=== PATIENT | male | born 1950 | race Caucasian/White ===

== ENCOUNTER 2019-06-10 15:41 | Inpatient (IN) ==
[2019-06-10] MEDS ORDERED: 0.9 % Sodium Chloride 500 ML IVC STA (16:03)
[2019-06-10 16:04] LABS: Basophils % 0.4 %; Eosinophils # 0.1 K/mcL (0.0-0.6); Eosinophils % 1.1 %; Hematocrit 44.2 % (37.5-50.1); Hemoglobin 15.3 g/dL (12.9-16.9); Immature Granulocytes % 0.3 % (0-4); Lymphocytes # 1.7 K/mcL (0.6-4.6); Lymphocytes % 18.3 %; Mean Corpuscular HGB Conc 34.6 g/dL (31.6-35.5); Mean Corpuscular Hemoglobin 28.9 pg (28.0-33.3); Mean Corpuscular Volume 83.6 fL (83.0-100.0); Mean Platelet Volume 9.7 fL (9.4-12.4); Monocytes # 0.7 K/mcL (0.0-1.3); Monocytes % 7.5 %; Neutrophils # 6.8 K/mcL (1.6-8.9); Platelet Count 342 K/mcL (140-400); Red Blood Count 5.29 M/mcL (4.19-5.50); Red Cell Distribution Width 13.8 % (11.5-14.5); Segmented Neutrophils % 72.4 %; White Blood Count 9.3 K/mcL (4.3-11.1)
[2019-06-10 16:25] LABS: BUN/Creatinine Ratio 21 (6-26); Blood Urea Nitrogen 18 mg/dL (8-23); Calcium 9.4 mg/dL (8.6-10.3); Carbon Dioxide 28 mEq/L (23-29); Chloride 100 mEq/L (98-107); Glucose 165 mg/dL (70-105); Osmolality,Calculated 296 (280-300); Potassium 3.1 mEq/L (3.5-5.1); Sodium 140 mEq/L (136-145); Troponin I < 0.03 ng/mL (< 0.04); eGFR For African Americans > 60 (> 60); eGFR For Non-African Americans > 60 (> 60)
[2019-06-10] MEDS: DilTIAZem 50 MG in 0.9 % Sodium Chloride 40 ML IVC SCH ×2 (17:14→21:12)
[2019-06-10] MEDS ORDERED: Naloxone 0.4 MG/ML INJ IVP PRN (17:45)
[2019-06-10] MEDS ORDERED: Ondansetron ODT 4 MG TAB.RAPDIS SL PRN (17:45)
[2019-06-10 18:09] LABS: Magnesium 1.9 mg/dL (1.6-2.6)
[2019-06-10] MEDS ORDERED: Dextrose Gel 15 GM/37.5 ML TUBE PO PRN ×2 (18:16)
[2019-06-10] MEDS ORDERED: D5% in Water 1,000 ML IVC PRN (18:16)
[2019-06-10] MEDS ORDERED: *HR* Dextrose 50 % in Water (Syg) 50 ML SYRINGE IVP PRN (18:16)
[2019-06-11] MEDS: DilTIAZem 50 MG in 0.9 % Sodium Chloride 40 ML IVC SCH ×4 (02:20→20:43)
[2019-06-11 05:21] LABS: Hematocrit 41.3 % (37.5-50.1); Mean Corpuscular HGB Conc 33.9 g/dL (31.6-35.5); Mean Corpuscular Hemoglobin 29.1 pg (28.0-33.3); Mean Corpuscular Volume 85.9 fL (83.0-100.0); Mean Platelet Volume 10.2 fL (9.4-12.4); Platelet Count 302 K/mcL (140-400); Red Blood Count 4.81 M/mcL (4.19-5.50); Red Cell Distribution Width 13.8 % (11.5-14.5); White Blood Count 10.9 K/mcL (4.3-11.1)
[2019-06-11 05:47] LABS: BUN/Creatinine Ratio 19 (6-26); Blood Urea Nitrogen 14 mg/dL (8-23); Calcium 8.5 mg/dL (8.6-10.3); Carbon Dioxide 24 mEq/L (23-29); Chloride 103 mEq/L (98-107); Glucose 145 mg/dL (70-105); Osmolality,Calculated 289 (280-300); Potassium 3.3 mEq/L (3.5-5.1); Sodium 138 mEq/L (136-145); eGFR For African Americans > 60 (> 60); eGFR For Non-African Americans > 60 (> 60)
[2019-06-11] MEDS: Lisinopril 20 MG TABLET PO SCH (08:34)
[2019-06-11] MEDS: Finasteride 5 MG TABLET PO SCH (08:34)
[2019-06-11] MEDS: Aspirin Enteric Coated 81 MG Tablet PO SCH (08:35)
[2019-06-11] MEDS: Magnesium Oxide 400 MG TABLET PO SCH (08:35)
[2019-06-11] MEDS: Multivit/Ca/Min/Fe/FA 1 TAB TABLET PO SCH (08:36)
[2019-06-11] MEDS: Insulin LISPRO 300 UNITS/3 ML VIAL SQ SCH ×3 (08:50→16:52)
[2019-06-11] MEDS ORDERED: amLODIPine 5 MG TABLET PO SCH (09:00)
[2019-06-11] MEDS ORDERED: Metoprolol XL (24 HR) Succ 50 MG TAB.ER.24H PO SCH (09:00)
[2019-06-11] MEDS ORDERED: Metoprolol XL (24 HR) Succ 25 MG TAB.ER.24H PO ONE (11:47)
[2019-06-11] MEDS ORDERED: Perflutren Lipid Microsphere 1.3 ML in 0.9 % Sodium Chloride 8.7 ML IVP ONE (15:19)
[2019-06-11] MEDS: *HR* Rivaroxaban 10 MG TABLET PO SCH (16:51)
[2019-06-11] MEDS: Insulin DETEMIR 100 UNIT/ML X5UNITS SQ SCH (20:38)
[2019-06-12] MEDS: DilTIAZem 50 MG in 0.9 % Sodium Chloride 40 ML IVC SCH ×3 (03:24→18:45)
[2019-06-12 04:59] LABS: Hematocrit 38.6 % (37.5-50.1); Hemoglobin 13.3 g/dL (12.9-16.9); Mean Corpuscular HGB Conc 34.5 g/dL (31.6-35.5); Mean Corpuscular Hemoglobin 28.9 pg (28.0-33.3); Mean Corpuscular Volume 83.7 fL (83.0-100.0); Mean Platelet Volume 9.9 fL (9.4-12.4); Platelet Count 293 K/mcL (140-400); Red Blood Count 4.61 M/mcL (4.19-5.50); Red Cell Distribution Width 14.1 % (11.5-14.5); White Blood Count 10.5 K/mcL (4.3-11.1)
[2019-06-12 05:18] LABS: BUN/Creatinine Ratio 24 (6-26); Blood Urea Nitrogen 20 mg/dL (8-23); Calcium 8.6 mg/dL (8.6-10.3); Carbon Dioxide 25 mEq/L (23-29); Chloride 104 mEq/L (98-107); Glucose 146 mg/dL (70-105); Osmolality,Calculated 297 (280-300); Potassium 3.6 mEq/L (3.5-5.1); Sodium 141 mEq/L (136-145); eGFR For African Americans > 60 (> 60); eGFR For Non-African Americans > 60 (> 60)
[2019-06-12] MEDS: Insulin LISPRO 300 UNITS/3 ML VIAL SQ SCH ×3 (08:17→17:08)
[2019-06-12] MEDS: Multivit/Ca/Min/Fe/FA 1 TAB TABLET PO SCH (08:32)
[2019-06-12] MEDS: Lisinopril 20 MG TABLET PO SCH (08:32)
[2019-06-12] MEDS: Finasteride 5 MG TABLET PO SCH (08:33)
[2019-06-12] MEDS: Magnesium Oxide 400 MG TABLET PO SCH (08:33)
[2019-06-12] MEDS: Insulin DETEMIR 100 UNIT/ML X5UNITS SQ SCH ×2 (08:34→21:29)
[2019-06-12] MEDS: Metoprolol XL (24 HR) Succ 50 MG TAB.ER.24H PO SCH ×2 (08:34→21:29)
[2019-06-12] MEDS: Aspirin Enteric Coated 81 MG Tablet PO SCH (08:34)
[2019-06-12] MEDS ORDERED: Metoprolol XL (24 HR) Succ 50 MG TAB.ER.24H PO SCH (09:00)
[2019-06-12] MEDS ORDERED: Metoprolol XL (24 HR) Succ 25 MG TAB.ER.24H PO ONE (09:32)
[2019-06-12] MEDS: *HR* Rivaroxaban 10 MG TABLET PO SCH (17:07)
[2019-06-13 02:02] LABS: BUN/Creatinine Ratio 25 (6-26); Blood Urea Nitrogen 20 mg/dL (8-23); Calcium 8.6 mg/dL (8.6-10.3); Carbon Dioxide 25 mEq/L (23-29); Chloride 106 mEq/L (98-107); Glucose 111 mg/dL (70-105); Magnesium 1.9 mg/dL (1.6-2.6); Osmolality,Calculated 293 (280-300); Phosphorous 3.8 mg/dL (2.7-4.5); Potassium 3.2 mEq/L (3.5-5.1); Sodium 140 mEq/L (136-145); eGFR For African Americans > 60 (> 60); eGFR For Non-African Americans > 60 (> 60)
[2019-06-13] MEDS: Metoprolol XL (24 HR) Succ 50 MG TAB.ER.24H PO SCH ×2 (08:59→20:38)
[2019-06-13] MEDS: Lisinopril 20 MG TABLET PO SCH (09:00)
[2019-06-13] MEDS: Aspirin Enteric Coated 81 MG Tablet PO SCH (09:00)
[2019-06-13] MEDS: Finasteride 5 MG TABLET PO SCH (09:00)
[2019-06-13] MEDS: Multivit/Ca/Min/Fe/FA 1 TAB TABLET PO SCH (09:00)
[2019-06-13] MEDS: Magnesium Oxide 400 MG TABLET PO SCH (09:02)
[2019-06-13] MEDS: Insulin LISPRO 300 UNITS/3 ML VIAL SQ SCH ×2 (09:03→12:41)
[2019-06-13] MEDS: Insulin DETEMIR 100 UNIT/ML X5UNITS SQ SCH ×2 (09:06→20:38)
[2019-06-13] MEDS ORDERED: DilTIAZem CD (24hr) 180 MG CAP.ER.24H PO SCH (11:01)
[2019-06-13] MEDS: DilTIAZem 50 MG in 0.9 % Sodium Chloride 40 ML IVC SCH (11:43)
[2019-06-13] MEDS: *HR* Rivaroxaban 10 MG TABLET PO SCH (17:01)
[2019-06-14 02:53] LABS: BUN/Creatinine Ratio 25 (6-26); Blood Urea Nitrogen 23 mg/dL (8-23); Calcium 8.6 mg/dL (8.6-10.3); Carbon Dioxide 27 mEq/L (23-29); Chloride 104 mEq/L (98-107); Glucose 122 mg/dL (70-105); Osmolality,Calculated 299 (280-300); Phosphorous 3.9 mg/dL (2.7-4.5); Potassium 3.4 mEq/L (3.5-5.1); Sodium 142 mEq/L (136-145); eGFR For African Americans > 60 (> 60); eGFR For Non-African Americans > 60 (> 60)
[2019-06-14] MEDS ORDERED: DilTIAZem CD (24hr) 240 MG CAP.ER.24H PO SCH (09:00)
[2019-06-14] MEDS: Insulin LISPRO 300 UNITS/3 ML VIAL SQ SCH ×3 (09:23→13:38)
[2019-06-14] MEDS: Aspirin Enteric Coated 81 MG Tablet PO SCH (09:35)
[2019-06-14] MEDS: Metoprolol XL (24 HR) Succ 50 MG TAB.ER.24H PO SCH (09:36)
[2019-06-14] MEDS: Magnesium Oxide 400 MG TABLET PO SCH (09:36)
[2019-06-14] MEDS: Lisinopril 20 MG TABLET PO SCH (09:36)
[2019-06-14] MEDS: Multivit/Ca/Min/Fe/FA 1 TAB TABLET PO SCH (09:36)
[2019-06-14] MEDS: Finasteride 5 MG TABLET PO SCH (09:36)
[2019-06-14] MEDS: Insulin DETEMIR 100 UNIT/ML X5UNITS SQ SCH (09:42)
[2019-06-14] MEDS ORDERED: *HR* Metoprolol 5 MG/5 ML VIAL IVP ONE (11:29)
[2019-06-14 12:02] VITALS: BP 125/97
== END 2019-06-14 15:54 | disposition home or self-care (01) | DRG 310 ==
LOC: SUATTDRO → EMEROOARM 15:41 → 2NENU 15:41 → SUATTDRO 18:35 → 2NENU 19:33
PROVIDERS: ADMIT Student in an Organized Health Care Education/Training Program; ATTEND Internal Medicine

== ENCOUNTER 2019-07-08 16:20 | Inpatient (IN) ==
[2019-07-08 17:31] LABS: Basophils % 0.4 %; Eosinophils # 0.2 K/mcL (0.0-0.6); Eosinophils % 1.7 %; Hematocrit 39.9 % (37.5-50.1); Hemoglobin 13.3 g/dL (12.9-16.9); Immature Granulocytes % 0.1 % (0-4); Lymphocytes # 1.6 K/mcL (0.6-4.6); Lymphocytes % 16.5 %; Mean Corpuscular HGB Conc 33.3 g/dL (31.6-35.5); Mean Corpuscular Hemoglobin 28.7 pg (28.0-33.3); Mean Corpuscular Volume 86.2 fL (83.0-100.0); Mean Platelet Volume 10.3 fL (9.4-12.4); Monocytes # 0.7 K/mcL (0.0-1.3); Monocytes % 6.8 %; Neutrophils # 7.2 K/mcL (1.6-8.9); Platelet Count 274 K/mcL (140-400); Red Blood Count 4.63 M/mcL (4.19-5.50); Red Cell Distribution Width 14.3 % (11.5-14.5); Segmented Neutrophils % 74.5 %; White Blood Count 9.6 K/mcL (4.3-11.1)
[2019-07-08 17:38] LABS: INR 1.2; Prothrombin Time 14.1 Seconds (9.4-12.1)
[2019-07-08 17:40] LABS: Activated Partial Thrombo Time 38.1 Seconds (26.0-36.0)
[2019-07-08 17:49] LABS: BUN/Creatinine Ratio 22 (6-26); Blood Urea Nitrogen 17 mg/dL (8-23); Calcium 9.4 mg/dL (8.6-10.3); Carbon Dioxide 28 mEq/L (23-29); Chloride 103 mEq/L (98-107); Glucose 203 mg/dL (70-105); Osmolality,Calculated 301 (280-300); Sodium 142 mEq/L (136-145); Troponin I < 0.03 ng/mL (< 0.04); eGFR For African Americans > 60 (> 60); eGFR For Non-African Americans > 60 (> 60)
[2019-07-08] MEDS: DilTIAZem 50 MG in 0.9 % Sodium Chloride 40 ML IVC SCH ×2 (17:57→22:32)
[2019-07-08] MEDS ORDERED: *HR* Metoprolol 5 MG/5 ML VIAL IVP ONE (23:01)
[2019-07-08] MEDS ORDERED: Naloxone 0.4 MG/ML INJ IVP PRN (23:28)
[2019-07-08] MEDS ORDERED: *HR* Dextrose 50 % in Water (Syg) 50 ML SYRINGE IVP PRN (23:33)
[2019-07-08] MEDS ORDERED: Dextrose Gel 15 GM/37.5 ML TUBE PO PRN ×2 (23:33)
[2019-07-08] MEDS ORDERED: D5% in Water 1,000 ML IVC PRN (23:33)
[2019-07-09] MEDS: *HR* Rivaroxaban 10 MG TABLET PO SCH ×2 (00:18→08:44)
[2019-07-09] MEDS: Insulin LISPRO 300 UNITS/3 ML VIAL SQ SCH ×5 (00:19→20:17)
[2019-07-09] MEDS ORDERED: *HR* Metoprolol 5 MG/5 ML VIAL IVP ONE (02:17)
[2019-07-09] MEDS ORDERED: Potassium Chloride 40 MEQ, Lidocaine 1% 2 ML in 0.9 % Sodium Chloride 500 ML IVPB ONE (03:13)
[2019-07-09] MEDS: DilTIAZem 50 MG in 0.9 % Sodium Chloride 40 ML IVC SCH ×4 (03:19→23:00)
[2019-07-09 05:06] LABS: Hemoglobin 12.8 g/dL (12.9-16.9); Mean Corpuscular HGB Conc 32.8 g/dL (31.6-35.5); Mean Corpuscular Hemoglobin 28.4 pg (28.0-33.3); Mean Corpuscular Volume 86.7 fL (83.0-100.0); Mean Platelet Volume 10.8 fL (9.4-12.4); Platelet Count 290 K/mcL (140-400); Red Cell Distribution Width 14.2 % (11.5-14.5); White Blood Count 11.5 K/mcL (4.3-11.1)
[2019-07-09 05:32] LABS: BUN/Creatinine Ratio 19 (6-26); Blood Urea Nitrogen 13 mg/dL (8-23); Calcium 8.8 mg/dL (8.6-10.3); Carbon Dioxide 29 mEq/L (23-29); Chloride 101 mEq/L (98-107); Glucose 134 mg/dL (70-105); Magnesium 1.7 mg/dL (1.6-2.6); Osmolality,Calculated 294 (280-300); Phosphorous 3.6 mg/dL (2.7-4.5); Potassium 2.9 mEq/L (3.5-5.1); Sodium 141 mEq/L (136-145); Troponin I < 0.03 ng/mL (< 0.04); eGFR For African Americans > 60 (> 60); eGFR For Non-African Americans > 60 (> 60)
[2019-07-09] MEDS: Aspirin Enteric Coated 81 MG Tablet PO SCH (08:44)
[2019-07-09] MEDS ORDERED: *HR* Rivaroxaban 10 MG TABLET PO SCH (09:00)
[2019-07-09] MEDS: DilTIAZem CD (24hr) 240 MG CAP.ER.24H PO SCH (09:51)
[2019-07-09] MEDS: Lisinopril 20 MG TABLET PO SCH (09:52)
[2019-07-09] MEDS: Metoprolol XL (24 HR) Succ 50 MG TAB.ER.24H PO SCH (09:53)
[2019-07-09] MEDS ORDERED: Metoprolol XL (24 HR) Succ 50 MG TAB.ER.24H PO SCH (21:00)
[2019-07-09] MEDS ORDERED: *HR* LORazepam 0.5 MG TABLET PO ONE (21:56)
[2019-07-10 01:08] LABS: Basophils % 0.4 %; Eosinophils # 0.2 K/mcL (0.0-0.6); Eosinophils % 2.1 %; Hematocrit 36.9 % (37.5-50.1); Hemoglobin 11.9 g/dL (12.9-16.9); Immature Granulocytes % 0.4 % (0-4); Lymphocytes # 2.2 K/mcL (0.6-4.6); Lymphocytes % 22.9 %; Mean Corpuscular HGB Conc 32.2 g/dL (31.6-35.5); Mean Corpuscular Hemoglobin 27.6 pg (28.0-33.3); Mean Corpuscular Volume 85.6 fL (83.0-100.0); Mean Platelet Volume 10.4 fL (9.4-12.4); Monocytes # 0.7 K/mcL (0.0-1.3); Neutrophils # 6.6 K/mcL (1.6-8.9); Platelet Count 299 K/mcL (140-400); Red Blood Count 4.31 M/mcL (4.19-5.50); Red Cell Distribution Width 14.2 % (11.5-14.5); Segmented Neutrophils % 67.2 %; White Blood Count 9.7 K/mcL (4.3-11.1)
[2019-07-10 01:30] LABS: BUN/Creatinine Ratio 22 (6-26); Blood Urea Nitrogen 16 mg/dL (8-23); Calcium 8.6 mg/dL (8.6-10.3); Carbon Dioxide 25 mEq/L (23-29); Chloride 104 mEq/L (98-107); Glucose 126 mg/dL (70-105); Osmolality,Calculated 293 (280-300); Potassium 3.3 mEq/L (3.5-5.1); Sodium 140 mEq/L (136-145); eGFR For African Americans > 60 (> 60); eGFR For Non-African Americans > 60 (> 60)
[2019-07-10] MEDS: Insulin LISPRO 300 UNITS/3 ML VIAL SQ SCH ×4 (07:43→22:39)
[2019-07-10] MEDS: DilTIAZem CD (24hr) 240 MG CAP.ER.24H PO SCH (08:06)
[2019-07-10] MEDS: Metoprolol XL (24 HR) Succ 50 MG TAB.ER.24H PO SCH ×2 (08:06→20:13)
[2019-07-10] MEDS: *HR* Rivaroxaban 10 MG TABLET PO SCH (08:06)
[2019-07-10] MEDS: Aspirin Enteric Coated 81 MG Tablet PO SCH (08:06)
[2019-07-10] MEDS: Lisinopril 20 MG TABLET PO SCH (10:25)
[2019-07-10] MEDS: Melatonin 3 MG TABLET PO PRN (22:38)
[2019-07-11 01:49] LABS: BUN/Creatinine Ratio 24 (6-26); Blood Urea Nitrogen 22 mg/dL (8-23); Calcium 9.1 mg/dL (8.6-10.3); Carbon Dioxide 26 mEq/L (23-29); Chloride 105 mEq/L (98-107); Glucose 146 mg/dL (70-105); Osmolality,Calculated 296 (280-300); Potassium 3.6 mEq/L (3.5-5.1); Sodium 140 mEq/L (136-145); eGFR For African Americans > 60 (> 60); eGFR For Non-African Americans > 60 (> 60)
[2019-07-11] MEDS: Insulin LISPRO 300 UNITS/3 ML VIAL SQ SCH ×4 (08:27→21:01)
[2019-07-11] MEDS: Lisinopril 20 MG TABLET PO SCH (08:47)
[2019-07-11] MEDS: Aspirin Enteric Coated 81 MG Tablet PO SCH (08:49)
[2019-07-11] MEDS: Metoprolol XL (24 HR) Succ 50 MG TAB.ER.24H PO SCH ×2 (08:49→21:02)
[2019-07-11] MEDS: *HR* Rivaroxaban 10 MG TABLET PO SCH (08:49)
[2019-07-11] MEDS ORDERED: 0.9 % Sodium Chloride 500 ML IVC ONE (11:06)
[2019-07-11] MEDS: *HR* FentaNYL (PF) 100 MCG/2 ML VIAL IVP PRN ×2 (11:48→11:52)
[2019-07-11] MEDS: *HR* Midazolam HCl 5 MG/5 ML VIAL IVP PRN ×2 (11:48→11:52)
[2019-07-11] MEDS ORDERED: *HR* Metoprolol 5 MG/5 ML VIAL IVP ONE ×2 (11:59→12:02)
[2019-07-11] MEDS: DilTIAZem CD (24hr) 180 MG CAP.ER.24H PO SCH (12:52)
[2019-07-11] MEDS: Melatonin 3 MG TABLET PO PRN (21:03)
[2019-07-12] MEDS ORDERED: Regadenoson 0.4 MG/5 ML SYRINGE IVP ONE (06:02)
[2019-07-12] MEDS: Insulin LISPRO 300 UNITS/3 ML VIAL SQ SCH ×4 (07:36→20:36)
[2019-07-12] MEDS: Lisinopril 20 MG TABLET PO SCH (10:15)
[2019-07-12] MEDS: DilTIAZem CD (24hr) 180 MG CAP.ER.24H PO SCH (10:15)
[2019-07-12] MEDS: Aspirin Enteric Coated 81 MG Tablet PO SCH (10:16)
[2019-07-12] MEDS: Metoprolol XL (24 HR) Succ 50 MG TAB.ER.24H PO SCH ×2 (10:16→20:42)
[2019-07-12] MEDS: *HR* Rivaroxaban 10 MG TABLET PO SCH (10:17)
[2019-07-13 04:50] LABS: Basophils % 0.4 %; Eosinophils # 0.1 K/mcL (0.0-0.6); Eosinophils % 1.4 %; Hematocrit 42.9 % (37.5-50.1); Immature Granulocytes % 0.3 % (0-4); Lymphocytes # 2.3 K/mcL (0.6-4.6); Lymphocytes % 24.6 %; Mean Corpuscular HGB Conc 31.7 g/dL (31.6-35.5); Mean Corpuscular Hemoglobin 27.8 pg (28.0-33.3); Mean Corpuscular Volume 87.6 fL (83.0-100.0); Mean Platelet Volume 10.8 fL (9.4-12.4); Monocytes # 0.6 K/mcL (0.0-1.3); Monocytes % 6.6 %; Neutrophils # 6.1 K/mcL (1.6-8.9); Platelet Count 321 K/mcL (140-400); Red Cell Distribution Width 14.1 % (11.5-14.5); Segmented Neutrophils % 66.7 %; White Blood Count 9.2 K/mcL (4.3-11.1)
[2019-07-13 05:09] LABS: BUN/Creatinine Ratio 26 (6-26); Blood Urea Nitrogen 22 mg/dL (8-23); Calcium 8.9 mg/dL (8.6-10.3); Carbon Dioxide 27 mEq/L (23-29); Chloride 105 mEq/L (98-107); Glucose 111 mg/dL (70-105); Hemoglobin 13.6 g/dL (12.9-16.9); Magnesium 1.8 mg/dL (1.6-2.6); Osmolality,Calculated 294 (280-300); Potassium 3.7 mEq/L (3.5-5.1); Sodium 140 mEq/L (136-145); eGFR For African Americans > 60 (> 60); eGFR For Non-African Americans > 60 (> 60)
[2019-07-13] MEDS: Insulin LISPRO 300 UNITS/3 ML VIAL SQ SCH ×4 (07:57→21:22)
[2019-07-13] MEDS: Finasteride 5 MG TABLET PO SCH (08:03)
[2019-07-13] MEDS: Metoprolol XL (24 HR) Succ 50 MG TAB.ER.24H PO SCH ×2 (08:03→21:22)
[2019-07-13] MEDS: *HR* Rivaroxaban 10 MG TABLET PO SCH (08:03)
[2019-07-13] MEDS: Lisinopril 20 MG TABLET PO SCH (08:03)
[2019-07-13] MEDS: Aspirin Enteric Coated 81 MG Tablet PO SCH (08:03)
[2019-07-13] MEDS: DilTIAZem CD (24hr) 180 MG CAP.ER.24H PO SCH (08:03)
[2019-07-13] MEDS ORDERED: Magnesium Oxide 400 MG TABLET PO ONE (09:00)
[2019-07-14 05:00] LABS: BUN/Creatinine Ratio 21 (6-26); Blood Urea Nitrogen 15 mg/dL (8-23); Calcium 8.7 mg/dL (8.6-10.3); Carbon Dioxide 25 mEq/L (23-29); Chloride 106 mEq/L (98-107); Glucose 118 mg/dL (70-105); Magnesium 1.9 mg/dL (1.6-2.6); Osmolality,Calculated 294 (280-300); Potassium 3.2 mEq/L (3.5-5.1); Sodium 141 mEq/L (136-145); eGFR For African Americans > 60 (> 60); eGFR For Non-African Americans > 60 (> 60)
[2019-07-14] MEDS: Insulin LISPRO 300 UNITS/3 ML VIAL SQ SCH ×4 (07:30→21:32)
[2019-07-14] MEDS: Metoprolol XL (24 HR) Succ 50 MG TAB.ER.24H PO SCH ×2 (07:42→21:39)
[2019-07-14] MEDS: *HR* Rivaroxaban 10 MG TABLET PO SCH (07:42)
[2019-07-14] MEDS: Lisinopril 20 MG TABLET PO SCH (07:42)
[2019-07-14] MEDS: Finasteride 5 MG TABLET PO SCH (07:42)
[2019-07-14] MEDS: Aspirin Enteric Coated 81 MG Tablet PO SCH (07:43)
[2019-07-14] MEDS: DilTIAZem CD (24hr) 180 MG CAP.ER.24H PO SCH (07:43)
[2019-07-14] MEDS ORDERED: Metoprolol XL (24 HR) Succ 25 MG TAB.ER.24H PO ONE (11:46)
[2019-07-15 04:44] LABS: BUN/Creatinine Ratio 19 (6-26); Blood Urea Nitrogen 14 mg/dL (8-23); Calcium 8.9 mg/dL (8.6-10.3); Carbon Dioxide 25 mEq/L (23-29); Chloride 105 mEq/L (98-107); Glucose 108 mg/dL (70-105); Osmolality,Calculated 287 (280-300); Potassium 3.4 mEq/L (3.5-5.1); Sodium 138 mEq/L (136-145); eGFR For African Americans > 60 (> 60); eGFR For Non-African Americans > 60 (> 60)
[2019-07-15] MEDS: Insulin LISPRO 300 UNITS/3 ML VIAL SQ SCH (08:22)
[2019-07-15] MEDS: Lisinopril 20 MG TABLET PO SCH (08:34)
[2019-07-15] MEDS: *HR* Rivaroxaban 10 MG TABLET PO SCH (08:34)
[2019-07-15] MEDS: Aspirin Enteric Coated 81 MG Tablet PO SCH (08:34)
[2019-07-15] MEDS: Finasteride 5 MG TABLET PO SCH (08:34)
[2019-07-15] MEDS: DilTIAZem CD (24hr) 180 MG CAP.ER.24H PO SCH (08:35)
[2019-07-15] MEDS: Metoprolol XL (24 HR) Succ 50 MG TAB.ER.24H PO SCH (08:35)
[2019-07-15] MEDS ORDERED: Metoprolol XL (24 HR) Succ 25 MG TAB.ER.24H PO ONE (11:30)
[2019-07-15 11:57] VITALS: BP 140/98
[2019-07-15] MEDS ORDERED: Metoprolol XL (24 HR) Succ 50 MG TAB.ER.24H PO SCH (21:00)
== END 2019-07-15 12:30 | disposition home or self-care (01) | DRG 310 ==
LOC: EMEROOARM 16:20 → 2NENU 16:20 → SUATTDRO 19:55 → 2NENU 22:05
PROVIDERS: ADMIT Internal Medicine; ATTEND Internal Medicine